=== PATIENT | male | born 1980 | race Caucasian/White ===

== ENCOUNTER 2022-06-05 19:39 | Emergency (ER) | payer BC, SELFPAY ==
--- NOTE | ~2022-06-05 | XR_ITS ---
EXAMINATION: XR finger 5th LT min 2V DATE: 06/05/2022 20:05 INDICATION: COVID fell on the top of the left hand with trauma to the left fifth digit TECHNIQUE: Dorsal palmar, lateral and oblique views of the left fifth digit were obtained COMPARISON: None FINDINGS: Alignment is normal. No fracture. Joint spaces are normal. Mild soft tissue swelling about the fifth proximal interphalangeal joint. IMPRESSION: 1. No osseous abnormality. Reviewed, dictated and finalized at location A. IMPRESSION: 1. No osseous abnormality.
[2022-06-05 19:50] VITALS: BP 142/88; PULSE 80; RESP 20; TEMP 36.7; O2SAT 100
--- NOTE | 2022-06-05 20:44 | ED.UPPEXIN ---
HPI - Extremity Injury (Upper) General Chief Complaint: Extremity Injury, Upper Stated Complaint: car edwards came down on left pinky Time Seen by Provider: 06/05/22 19:55 Source: patient, RN notes reviewed and old records reviewed Mode of arrival: ambulatory Limitations: no limitations History of Present Illness HPI narrative: 41-year-old male presents to [facility] care with complaints of injury to his left fifth finger after car edwards fell on it just prior to arrival to clinic. Patient verbalizes extreme pain to his left 5th finger at the PIP joint region with some swelling and redness noted, no break in skin integrity noted. MD complaint: injury to: left and finger (5th) Onset (ago): hour(s) (within past hour) Handedness: left Severity scale (1-10): >10 Treatments prior to arrival: cold therapy Related Data Allergies Allergy/AdvReac Type Severity Reaction Status Date / Time No Known Allergies Allergy Unverified 10/15/17 12:55 Review of Systems Review of Systems: CONSTITUTIONAL: Denies fever, chills, or sweats. EYES: Denies visual changes, redness, or discharge. ENT: Denies rhinorrhea, congestion, sore throat, or otalgia. CARDIOVASCULAR: Denies chest pain, palpitations, or edema. RESPIRATORY: Denies cough or dyspnea. GASTROINTESTINAL: Denies abdominal pain, nausea, vomiting, or diarrhea. GENITOURINARY: Denies dysuria or hematuria. SKIN: Denies rash or itching. MUSCULOSKELETAL: Denies back pain, positive left fifth finger joint pain, or myalgia. NEUROLOGIC: Denies headache, numbness, or weakness. PSYCHIATRIC: Denies anxiety or depression. All systems reviewed & are unremarkable except as noted in HPI and below PMFSH Past Medical History Medical History (Updated 06/09/22 @ 14:55 by Anne Marie Singh NP) Fracture of right hand Mouth abscess Social History Social History (Updated 06/09/22 @ 14:58 by Anne Marie Singh NP) Smoking packs per day: 1 Smoking cigarettes per day: 20.0 Years smoked: 20 Smoking pack-years: 20.00 Smoking status: Current every day smoker Tobacco type: cigarettes Alcohol intake: current Alcohol use details: social Substance use type: does not use Gender identity (if verbalized by the patient): Male Comments At time of signature agree with nursing documentation of past medical, surgical, social and family history. There is no relevant family history pertinent to presenting complaint. Exam Narrative: GENERAL: Well-appearing, well-nourished, and in no acute distress. HEAD: Normocephalic, atraumatic. EYES: PERRLA and EOMI. ENT: Nares clear, no rhinorrhea or epistaxis. Mucous membranes moist.TM's normal, throat pink with no lesions or exudates, no tonsil swelling NECK: Supple.no lymphadenopathy CHEST: Clear to auscultation. No respiratory distress.SAO2 100% on room air HEART: Regular rate and rhythm. No murmur heard. Normal peripheral pulses. ABDOMEN: Soft, nontender, nondistended, normal active bowel sounds. EXTREMITIES: Normal range of motion. No edema. Pain to left anterior 5th finger with redness and swelling at PIP of left 5th finger, with pain with any attempted movement of finger, strong radial pulse with nail bed of 5th left finger blanching briskly, patient denies any tingling or numbness to his left 5th finger. SKIN: Warm, dry, no rash. NEURO: No focal deficits. Alert and oriented x3. Course Course Level of Care: Express Care Visit Vital Signs Vital signs: Vital Signs Temperature 36.7 C 06/05/22 19:50 Pulse Rate 80 06/05/22 19:50 Respiratory Rate 20 06/05/22 19:50 Blood Pressure 142/88 H 06/05/22 19:50 Pulse Oximetry 100 06/05/22 19:50 Oxygen Delivery Room Air 06/05/22 19:50 Temperature 36.7 C 06/05/22 19:50 Pulse Rate 80 06/05/22 19:50 Respiratory Rate 20 06/05/22 19:50 Blood Pressure 142/88 H 06/05/22 19:50 Pulse Oximetry 100 06/05/22 19:50 Oxygen Delivery Room Air 06/05/22 19:50 MDM - Extremity Injury (Upper) Dif
== END 2022-06-05 21:05 | disposition home or self-care (01) ==
PROVIDERS: Emergency Provider Registered Nurse
DX: S60.051A Contusion of right little finger without damage to nail, initial encounter (principal); W20.8XXA Other cause of strike by thrown, projected or falling object, initial encounter
CPT/HCPCS: 73140; 99213; G0463

== ENCOUNTER 2022-09-02 10:15 | Emergency (ER) | payer BC, SELFPAY ==
--- NOTE | ~2022-09-02 | XR_ITS ---
EXAMINATION: XR shoulder LT min 2V DATE: 09/02/2022 10:51 INDICATION: Anterior left shoulder pain post fall TECHNIQUE: AP internally and externally rotated, AP oblique externally rotated and axillary views of the left shoulder were obtained. COMPARISON: None FINDINGS: Normal alignment. No fracture. Glenohumeral joint is normal. Acromioclavicular joint is normal. Soft tissues are unremarkable. Visualized portion of the lungs are clear. IMPRESSION: Negative left shoulder radiographs. Reviewed, dictated and finalized at location A. [employer]
--- NOTE | 2022-09-02 10:19 | ED.UPPEXIN ---
HPI - Extremity Injury (Upper) General Chief Complaint: Extremity Injury, Upper Stated Complaint: Left shoulder injury Time Seen by Provider: 09/02/22 10:19 Source: patient and RN notes reviewed History of Present Illness HPI narrative: patient is a 42-year-old male who presents to the Urgent Care with complaints of left shoulder pain after slipping on his wooden deck this morning 8:45 a.m.. Patient denies hitting his head or any loss of consciousness. States he is unable to move the left arm. Patient has not taken anything for his pain prior to arrival. Denies any other injuries. No acute distress noted. Patient aware of the plan of care. Some parts of this dictation were generated by voice recognition software and may contain typographical and/or grammatical inaccuracies. Related Data Home Medications Medication Instructions Recorded Confirmed No Home Medications 09/02/22 09/02/22 Allergies Allergy/AdvReac Type Severity Reaction Status Date / Time No Known Allergies Allergy Verified 09/02/22 10:30 Review of Systems Review of Systems: CONSTITUTIONAL: Denies fever, chills, or sweats. EYES: Denies visual changes, redness, or discharge. ENT: Denies rhinorrhea, congestion, sore throat, or otalgia. CARDIOVASCULAR: Denies chest pain, palpitations, or edema. RESPIRATORY: Denies cough or dyspnea. GASTROINTESTINAL: Denies abdominal pain, nausea, vomiting, or diarrhea. GENITOURINARY: Denies dysuria or hematuria. SKIN: Denies rash or itching. MUSCULOSKELETAL: Reports of left shoulder pain NEUROLOGIC: Denies headache, numbness, or weakness. All other systems reviewed are negative, except as documented in HPI. [facility] Past Medical History Medical History (Updated 09/02/22 @ 11:22 by CISCO Montemayor) Fracture of right hand Mouth abscess Social History Social History (Updated 06/09/22 @ 14:58 by Anne Marie Singh NP) Smoking packs per day: 1 Smoking cigarettes per day: 20.0 Years smoked: 20 Smoking pack-years: 20.00 Smoking status: Current every day smoker Tobacco type: cigarettes Alcohol intake: current Alcohol use details: social Substance use type: does not use Gender identity (if verbalized by the patient): Male Comments At the time of my signature, I reviewed and agree with the nursing past medical, surgical, social, and family history. There is no relevant family history pertinent to the patient complaint. Exam Narrative: GENERAL: This is a well-nourished, well-developed patient, in no apparent distress. HEAD: normocephalic, atraumatic. EYES: PERRL. Sclera clear/white. Vision is grossly intact. EARS: External ears normal NOSE: External nose normal with no obvious nasal discharge, nares without redness, no rhinorrhea. THROAT: Mucous membranes moist NECK: Neck supple SKIN: warm, intact with no suspicious lesions or rash, good texture and turgor. NEURO: awake, alert, and oriented to person, place and time. There were no obvious focal neurologic abnormalities. EXTREMITIES: moderate anterior left shoulder tenderness with moderate tenderness without crepitus to the left clavicle. Unable to evaluate range of motion left upper extremity due to pain and discomfort. No obvious dislocation to the left shoulder. Positive strong left radial pulse with capillary refill less than 2 seconds. Course Course Level of Care: Express Care Visit Vital Signs Vital signs: Vital Signs Temperature 98.8 F 09/02/22 10:25 Pulse Rate 95 09/02/22 10:25 Respiratory Rate 16 09/02/22 10:25 Blood Pressure 134/82 09/02/22 10:25 Pulse Oximetry 100 09/02/22 10:25 Oxygen Delivery Room Air 09/02/22 10:25 Temperature 98.8 F 09/02/22 10:25 Pulse Rate 95 09/02/22 10:25 Respiratory Rate 16 09/02/22 10:25 Blood Pressure 134/82 09/02/22 10:25 Pulse Oximetry 100 09/02/22 10:25 Oxygen Delivery Room Air 09/02/22 10:25 Reviewed MDM - Extremity Injury (Upper
[2022-09-02 10:25] VITALS: BP 134/82; PULSE 95; RESP 16; TEMP 37.1; O2SAT 100
== END 2022-09-02 11:25 | disposition home or self-care (01) ==
PROVIDERS: Emergency Provider Nurse Practitioner Family; PCP Family Medicine
DX: S40.012A Contusion of left shoulder, initial encounter (principal); W01.0XXA Fall on same level from slipping, tripping and stumbling without subsequent striking against object, initial encounter; F17.210 Nicotine dependence, cigarettes, uncomplicated
CPT/HCPCS: 73030; 99213; G0463

== ENCOUNTER 2024-05-19 12:15 | Emergency (ER) | payer BC, SELFPAY ==
[2024-05-19 12:20] VITALS: BP 146/89; PULSE 77; RESP 20; TEMP 36.5; O2SAT 100
--- NOTE | 2024-05-19 12:32 | ED.URI ---
HPI - URI/Sore Throat General Chief Complaint: Upper Respiratory Infection Stated Complaint: Body Ache/Congestion Time Seen by Provider: 05/19/24 12:32 Source: patient and RN notes reviewed Mode of arrival: ambulatory Limitations: no limitations History of Present Illness HPI Narrative: 43-year-old male presented for complaint of headache, body aches, sinus pressure/congestion, cough, fever/chills. Reports some wheezing and the cough has been so forceful it results in vomiting. Onset 2 days. Denies sob, n/v/d. not taking anything for symptoms. Denies sick contact. Smokes 1ppd. Reports hx HTN but says he is in between doctors and has not had med refills. MD elicited complaint: cough Related Data Allergies Allergy/AdvReac Type Severity Reaction Status Date / Time No Known Allergies Allergy Verified 05/19/24 12:31 Review of Systems Review of Systems: CONSTITUTIONAL: Endorses malaise, chills, sweats, fever EYES: Denies visual changes, redness, or discharge ENT: Reports rhinorrhea, congestion, denies otalgia, sore throat CARDIOVASCULAR: Denies chest pain, palpitations, edema RESPIRATORY: Reports cough, post nasal drainage. Denies dyspnea GASTROINTESTINAL: Denies abdominal pain, nausea, vomiting, diarrhea SKIN: Denies rash or itching MUSCULOSKELETAL: Endorses myalgia PMFSH Past Medical History Medical History Fracture of right hand Mouth abscess Social History Social History Smoking packs per day: 1 Smoking cigarettes per day: 20.0 Years smoked: 20 Smoking pack-years: 20.00 Smoking status: Current every day smoker Tobacco type: cigarettes Alcohol intake: current Alcohol use details: social Substance use type: does not use Gender identity (if verbalized by the patient): Male Exam Narrative: GENERAL: mildly Ill-appearing, nontoxic no acute distress. EYES: conjunctivae clear ENT: Mucous membranes moist. TMs pearly chappell with dull light reflex bilaterally; no tragal tenderness. Oropharynx not erythematous without lesions or exudate, no drooling, no hoarseness, no trismus, uvula midline. No tripod positioning, muffled voice, soft palate or pharyngeal wall bulging NECK: Supple. No lymphadenopathy CHEST: Wheezing to right lobes. No respiratory distress, speaks in full sentences. HEART: Regular rate and rhythm. No murmur heard. SKIN: Warm, dry, no rash. NEURO: Alert and oriented x3. PSYCH: Normal mood and affect Course Course Emergency Course: Patient is aware of diagnosis, understands and agrees to treatment plan. Anticipatory guidance given. Patient agrees to follow-up as directed and is aware of reasons to seek care at the emergency department. Portions of this record may have been created with voice recognition software Level of Care: Express Care Visit Vital Signs Vital signs: Vital Signs Temperature 97.7 F 05/19/24 12:20 Pulse Rate 77 05/19/24 12:20 Respiratory Rate 20 05/19/24 12:20 Blood Pressure 146/89 H 05/19/24 12:20 Pulse Oximetry 100 05/19/24 12:20 Oxygen Delivery Room Air 05/19/24 12:20 Temperature 97.7 F 05/19/24 12:20 Pulse Rate 77 05/19/24 12:20 Respiratory Rate 20 05/19/24 12:20 Blood Pressure 146/89 H 05/19/24 12:20 Pulse Oximetry 100 05/19/24 12:20 Oxygen Delivery Room Air 05/19/24 12:20 reviewed MDM - URI/Sore Throat MDM Narrative Medical decision making narrative: Discussed physical exam findings. negative flu and COVID. Reviewed prescription. Advised supportive measures and signs/symptoms to go to the ER. Pt is appropriate for outpt treatment and f/u. Differential Diagnosis Differential diagnosis: Likely upper respiratory infection, sinusitis and viral infection Discharge Plan Discharge Clinical Impression: Bronchitis Patient Disposition: Home, Self-Care Condition: Stable Instructio
[2024-05-19 12:59] LABS: EDINFLUBSCREEN Negative (Negative)
[2024-05-23 15:35] LABS: EDINFLUASCREEN Negative (Negative)
== END 2024-05-19 12:50 | disposition home or self-care (01) ==
PROVIDERS: Emergency Provider Nurse Practitioner Family
DX: J40 Bronchitis, not specified as acute or chronic (principal); I10 Essential (primary) hypertension; Z91.148 Patient's other noncompliance with medication regimen for other reason; F17.210 Nicotine dependence, cigarettes, uncomplicated
CPT/HCPCS: 87426; 87804; 99213; G0463